=== PATIENT | male | born 2000 | race Caucasian/White ===

== ENCOUNTER 2018-03-01 19:57 | Emergency (ER) | payer OTHER ==
[2018-03-01 20:10] VITALS: BP 127/88
--- NOTE | 2018-03-01 20:34 | RADIOLOGY REPORT (SQ) ---
EXAM DESCRIPTION: FOOT RIGHT 2 VIEWS COMPLETED DATE/TIME: 03/01/2018 8:21 pm REASON FOR STUDY: Pain s/p Stingray sting to R foot COMPARISON: None. NUMBER OF VIEWS: Two views right foot LIMITATIONS: None. FINDINGS: There is no acute or significant bone, joint or soft tissue abnormality. OTHER: No foreign body in the region of the heel, side of apparent sting ray injury IMPRESSION: NORMAL STUDY. TECHNICAL DOCUMENTATION: JOB ID: [id number] Reading location - IP/workstation name: [facility]
[2018-03-01] MEDS ORDERED: DOXYCYCLINE HYCLATE 100 MG TABLET PO ONE (21:07)
[2018-03-01] MEDS ORDERED: HYDROCODONE/ACETAMINOPHEN 5-325 MG (6 TAB/ER DISP) PO PRN (21:08)
--- NOTE | 2018-03-01 21:13 | ER Document Report ---
HPI - HPI Patient complains to provider of: Stingray puncture wound Onset: This evening Onset/Duration: Sudden Quality of pain: Burning Pain Level: 5 Context: [place] 6 [place] and felt what seemed to be a stingray under his foot. Patient states that he had a sudden sharp pain to the right heel area. Patient states that he had immense pain until he put his foot in warm water and now he is having some pain relief to the foot. Patient's immunizations are up-to-date. Associated Symptoms: Other - Right foot pain Exacerbated by: Movement Relieved by: Denies Similar symptoms previously: No Recently seen / treated by doctor: No - ROS ROS below otherwise negative: Yes Systems Reviewed and Negative: Yes All other systems reviewed and negative - CONSTITUTIONAL Constitutional: DENIES: Fever - NEURO Neurology: DENIES: Weakness - GASTROINTESTINAL Gastrointestinal: DENIES: Nausea, Patient vomiting - MUSCULOSKELETAL Musculoskeletal: REPORTS: Extremity pain - DERM Skin Color: Normal Skin Problems: Puncture Wound Past Medical History - General Information source: Patient - Social History Smoking Status: Never Smoker Frequency of alcohol use: None Drug Abuse: None Occupation: Active duty Family History: Reviewed & Not Pertinent Patient has suicidal ideation: No Patient has homicidal ideation: No - Medical History Medical History: Negative Renal/ Medical History: Denies: Hx Peritoneal Dialysis Surgical Hx: Negative Vertical Provider Document - CONSTITUTIONAL Agree With Documented VS: Yes Exam Limitations: No Limitations General Appearance: WD/WN, No Apparent Distress - INFECTION CONTROL TRAVEL OUTSIDE OF THE [place] IN LAST 30 DAYS: No - HEENT HEENT: Atraumatic, Normocephalic - NECK Neck: Normal Inspection - RESPIRATORY Respiratory: Breath Sounds Normal, No Respiratory Distress - CARDIOVASCULAR Cardiovascular: Regular Rate, Regular Rhythm Pulses: Normal: Dorsalis pedis - MUSCULOSKELETAL/EXTREMETIES Musculoskeletal/Extremeties: MAEW, Tender - Tenderness to lateral aspect of right posterior heel with small puncture wound, no surrounding erythema, no obvious evidence of foreign body - NEURO Level of Consciousness: Awake, Alert, Appropriate Motor/Sensory: No Motor Deficit - DERM Integumentary: Warm, Dry - PW to lateral aspect of right foot Course - Re-evaluation Re-evalutation: 03/01/18 21:11 Patient reports marked pain improvement after immersion in warm water. Discussed worsening symptoms of patient should return immediately for. Patient verbalized understanding and agrees with discharge plan of care. - Vital Signs Vital signs: Temp Pulse Resp BP Pulse Ox 97.9 F 85 18 127/88 H 100 03/01/18 20:08 03/01/18 20:08 03/01/18 20:08 03/01/18 20:08 03/01/18 20:08 - Diagnostic Test Radiology reviewed: Reports reviewed Discharge - Discharge Clinical Impression: Contact with stingray as cause of accidental injury Puncture wound of foot Qualifiers: Encounter type: initial encounter Laterality: right Qualified Code(s): S91.331A - Puncture wound without foreign body, right foot, initial encounter Condition: Stable Disposition: HOME, SELF-CARE Instructions: Doxycycline ([facility]), Puncture Wound ([facility]) Additional Instructions: Return immediately for any new or worsening symptoms Followup with your primary care provider, call tomorrow to make a followup appointment Keep wound clean and monitor for any signs of infection. Return immediately for any redness, fever, increased pain or signs concerning for infection. Prescriptions: Doxycycline Hyclate 100 mg PO BID #10 capsule Naproxen [Naprosyn 250 Nmg Tablet] 1 tab PO BID #14 tablet Referrals: [facility] [Provider Group] - Follow up as needed
== END 2018-03-01 21:46 | disposition home or self-care (01) ==
LOC: ER 19:57
DX: T63.511A Toxic effect of contact with stingray, accidental (unintentional), initial encounter (principal); Y93.01 Activity, walking, marching and hiking; Y92.832 Beach as the place of occurrence of the external cause
CPT/HCPCS: 99283